=== PATIENT | male | born 1960 | race Caucasian/White ===

== ENCOUNTER → 2018-10-16 | Outpatient (CLI) | payer OTHER ==
[~2018-10-16] VITALS: Ht 170.2 cm; Wt 77.1 kg
[~2018-10-16] MED LIST: ASPIR 8181 MG PO; IRBESARTAN300 MG PO; OMEPRAZOLE 20 M20 M1 PO; PRAVACHOL40 MG PO; VITAMIN D2000 UNIT PO; VITAMINC500 PO
--- NOTE | ~2018-10-16 | P ---
[facility] [place] [address] [place] [address] PROCEDURE REPORT Name: ERICA NANCE [id number] Admission: 10/16/18 Attend Phys: Michael Garrison Discharge: Date of : 56 Report #: [id number] THIS REPORT FOR: //name// CC: Michael Mares III, MD DATE OF SERVICE: 10/16/2018 PROCEDURE PERFORMED: Colonoscopy. HISTORY OF PRESENT ILLNESS: The patient is a 58-year-old male who presents today for routine screening colonoscopy. His last colonoscopy was 10 years ago and normal. The patient denies any symptoms. No family history of colon cancer. DESCRIPTION OF PROCEDURE: The risks and benefits of the procedure were explained to the patient, those risks including but not limited to bleeding, perforation and the risk of sedation. He understood these risks and gave informed consent. Sedation was given using propofol per Anesthesia. Next, a digital rectal exam was initially performed, which was normal. Next, using a standard Olympus colonoscope, the scope was placed in the patient's anus and advanced under direct vision to the cecum. The overall prep was excellent. The cecum and ileocecal valve were normal in appearance. The ascending, transverse, descending and sigmoid colon were all normal. The rectal mucosa was normal. On retroflexion, small nonbleeding internal hemorrhoids were noted. The scope was then withdrawn and the procedure terminated. The patient tolerated the procedure well. IMPRESSION: 1. Small internal hemorrhoids. 2. Otherwise, normal colonoscopy. RECOMMENDATIONS: Repeat colonoscopy in 10 years. Thank you for allowing me to participate in his care. <ELECTRONICALLY SIGNED> By: Michael Evans MD 10/18/18 [id number] Michael Evans MD /nt
== END | disposition home or self-care (01) ==
LOC: GI 06:18
DX: Z12.11 Encounter for screening for malignant neoplasm of colon (principal); K64.8 Other hemorrhoids; I10 Essential (primary) hypertension; E78.5 Hyperlipidemia, unspecified; Z88.0 Allergy status to penicillin; Z79.899 Other long term (current) drug therapy; Z79.82 Long term (current) use of aspirin; Z98.890 Other specified postprocedural states; Z85.828 Personal history of other malignant neoplasm of skin

== ENCOUNTER → 2020-01-05 | Outpatient (CLI) | payer OTHER ==
[~2020-01-05] VITALS: Ht 170.2 cm; Wt 81.6 kg
[~2020-01-05] MED LIST changes: +ADVIL200 M1 PO; +VITAMIN D 2000 UNITS; -VITAMIN D2000 UNIT PO
--- NOTE | ~2020-01-05 | HPC ---
[facility] [place] [address] PAIN MANAGEMENT CONSULTATION Name: ERICA NANCE Room #: REG [facility] Le[facility]#: [id number] Admission: 01/05/20 Attend Phys: Haim Garland MD Discharge: Date of : 56 Report #: [id number] THIS REPORT FOR: cc: Riddhi Mares II, MD, II,Riddhi Garland,Haim Bryant MD ~ CC: RIDDHI Garland DATE OF SERVICE: 01/05/2020 CHIEF COMPLAINT: Low back pain with mild radiation into the left hip. SUBJECTIVE: The patient is a very pleasant 59-year-old who is here today to discuss his pain and his x-rays. He has had increasing pain over the last 6 months that he describes as sporadic, yet constant left hip pain. The intensity is not bad, 2/10; worst pain is a 5/10. He has done some exercises on his own, but he has not seen a chiropractor or had other treatments. He denies numbness, tingling or weakness; describing his pain as somewhat like a deep bruise. He has received some meloxicam in lieu of [id number] NSAID from Dr. Mares. MEDICATIONS: Ibuprofen p.r.n. alternating with meloxicam, irbesartan 300 mg and pravastatin. ALLERGIES: PENICILLIN. PAST MEDICAL AND SURGICAL HISTORY: Hypertension, ACL repair in 1992, hernia repair in 1958 and 2004. He had squamous cell removed about 5 years ago. He also underwent thyroidectomy for hyperthyroidism. SOCIAL HISTORY: Denies use of tobacco, drinks alcohol 1 to 2 beverages per day in a social setting. He works in sales. REVIEW OF SYSTEMS: Positive only for some blurred vision, fatigue and weakness. PHYSICAL EXAMINATION: VITAL SIGNS: Blood pressure 141/94, heart rate 80, respirations 16, 5 feet 7 inches, 180 pounds, BMI is 28.2. GENERAL: Moves quickly and independently from sitting to standing position. His gait is nonantalgic. CHEST: Clear. [facility] [address] [place] [address] PAIN MANAGEMENT CONSULTATION Name: ERICA NANCE Room #: REG [facility]#: [id number] Admission: 01/05/20 Attend Phys: Haim Garland MD Discharge: Date of : 56 Report #: [id number] CARDIAC: Rhythm is regular. I did not appreciate a murmur. There was no ectopy. MUSCULOSKELETAL: Examination of the spine reveals mild tenderness, good range of motion. Straight leg raising is mildly positive with little bit of discomfort in his left hip, but no further. Mild tenderness across the lumbosacral segment. IMAGING: MRI is reviewed, showing a broad-based disk bulge creating fairly [id number]-os-[id number] spinal stenosis in combination with a thickened ligamentum flavum and some bilateral facet hypertrophy. The AP diameter of the canal was measured at 7.3. He also has a grade 1 anterolisthesis and a corresponding retrolisthesis at L4-L5, L5-S1. This does not result in central canal stenosis, but there is bilateral neural foraminal narrowing. This may result in some of his radiating pain. X-rays were not reviewed; I rereviewed only the imaging reports. If he returns to the clinic at some point in time for an epidural injection, I would like him to bring the films with him. RECOMMENDATIONS: He is a candidate for an epidural if the pain gets severe enough. He does not want an injection today and I would agree that if his pain is tolerable and he can manage, the first step would be to undergo some physical therapy direction and begin a daily exercise program along with walking. We talked about the importance of remaining active. He is an ex-football player and athlete, and I think will take this to heart. Followup visit for epidural injection at his discretion if the pain becomes more severe and radicular in nature. By: [id number] Haim Garland MD /nt
[2020-01-05 09:03] VITALS: BP 141/94
--- NOTE | 2020-01-05 09:28 | NUR ---
Pain Clinic Assessment: 1. History of Osteoarthritis: * back History of Rheumatoid Arthritis: no 2. Height: 5 ft. 7 in. 170.2 cm. Weight: 180.0 lb. oz. 81.648 kg. Patient's BMI: 28.2 3. Vital Signs: BP: 141/94 Pulse: 80 Resp: 16 Temp: 02 Sat: 98 ECG Mon: 4. Pain Intensity: 2 5. Fall Risk: Dizziness: N Needs help standing or walking: N Fallen in the last 3 months: N Fall risk comments: 6. Patient on Blood Thinner: None 7. History of Hypertension: Y 8. Opioid Therapy greater than 6 weeks: N Opiate Contract Signed: 9. Risk Assessment Tool Provided: 0-low risk 10. Functional Assessment Tool: 11. Recreational Drug Use: Unknown Drug Type: Tobacco Use: Unknown if Ever Smoked Tobacco Type: Amount or Packs/day: How Many Years: Alcohol Use: Yes Frequency: Daily Quant: 2/day
== END ==
LOC: PAIN 06:45
DX: M43.17 Spondylolisthesis, lumbosacral region (principal); M48.07 Spinal stenosis, lumbosacral region; I10 Essential (primary) hypertension; Z88.0 Allergy status to penicillin; Z79.1 Long term (current) use of non-steroidal anti-inflammatories (NSAID); Z79.899 Other long term (current) drug therapy